=== PATIENT | male | born 1990 ===

== ENCOUNTER 2017-02-20 22:10 | Observation (INO) | payer SELFPAY ==
[2017-02-20 22:18] VITALS: BMI 28.3
--- NOTE | 2017-02-20 23:27 | ED PDOC ---
Arrival/HPI - General Chief Complaint: Chest Pain Time Seen by Provider: 02/20/17 22:33 Historian: Patient - History of Present Illness Narrative History of Present Illness (Text): 02/20/17 23:27 Eleazar Mccormack is a 26 year old male, whose past medical history includes tobacco abuse, who presents to the Emergency department complaining of chest pain. Patient states he was sitting down at home watching TV when he began experiencing mid-sternal chest pain radiating down his left arm. Patient notes associated shortness of breath and palpitations. Patient denies any fever , nausea, vomiting, diarrhea, urinary symptoms, back pain, neck pain, headache, dizziness, or any other complaints. Time/Duration: 4-6 hours (19:00) Symptom Course: Unchanged Quality: Tightness Activities at Onset: Rest, Light Context: Sitting, Home Past Medical History - Provider Review Nursing Documentation Reviewed: Yes - Psychiatric Hx Substance Use: No - Surgical History Hx Orthopedic Surgery: Yes (left foot) Family/Social History - Physician Review Nursing Documentation Reviewed: Yes Family/Social History: No Known Family HX Smoking Status: Light Smoker < 10 Cigarettes Daily Hx Alcohol Use: Yes Frequency of alcohol use: Socially Hx Substance Use: No Allergies/Home Meds Allergies/Adverse Reactions: Allergies No Known Allergies Allergy (Verified 02/20/17 22:18) Home Medications: Home Meds Medication Instructions Recorded Confirmed No Known Home Med 02/21/17 02/21/17 Review of Systems - Physician Review All systems were reviewed & negative as marked: Yes - Review of Systems Constitutional: Normal. absent: Fevers Eyes: Normal ENT: Normal Respiratory: SOB Cardiovascular: Chest Pain, Palpitations Gastrointestinal: Normal. absent: Abdominal Pain, Diarrhea, Nausea, Vomiting Genitourinary Male: Normal. absent: Dysuria, Frequency, Hematuria, Urinary Output Changes Musculoskeletal: Normal. absent: Back Pain, Neck Pain Skin: Normal. absent: Rash Neurological: Normal Endocrine: Normal Hemo/Lymphatic: Normal Psychiatric: Normal Physical Exam Vital Signs Reviewed: Yes Vital Signs Temp Pulse Resp BP Pulse Ox 02/21/17 01:15 62 16 128/78 97 02/20/17 23:15 64 20 133/78 98 02/20/17 22:45 98.3 F 70 16 147/83 98 02/20/17 22:21 97.7 F 82 20 163/100 H 98 Temperature: Afebrile Blood Pressure: Hypertensive Pulse: Regular Respiratory Rate: Normal Appearance: Positive for: Well-Appearing, Non-Toxic, Comfortable Pain Distress: None Mental Status: Positive for: Alert and Oriented X 3 - Systems Exam Head: Present: Atraumatic, Normocephalic Pupils: Present: PERRL Extroacular Muscles: Present: EOMI Conjunctiva: Present: Normal Mouth: Present: Moist Mucous Membranes Neck: Present: Normal Range of Motion Respiratory/Chest: Present: Clear to Auscultation, Good Air Exchange. No: Respiratory Distress, Accessory Muscle Use Cardiovascular: Present: Regular Rate and Rhythm, Normal S1, S2. No: Murmurs Abdomen: Present: Normal Bowel Sounds. No: Tenderness, Distention, Peritoneal Signs Back: Present: Normal Inspection Upper Extremity: Present: Normal Inspection. No: Cyanosis, Edema Lower Extremity: Present: Normal Inspection. No: Edema Neurological: Present: GCS=15, CN II-XII Intact, Speech Normal Skin: Present: Warm, Dry, Normal Color. No: Rashes Psychiatric: Present: Alert, Oriented x 3, Normal Insight, Normal Concentration Medical Decision Making ED Course and Treatment: 02/20/17 23:27 Impression: 26 year old male complaining of chest pain radiating to left arm, shortness of breath, and palpitations at 19:00 tonight. Plan: -- EKG -- Chest X-ray -- Labs, cardiac enzymes -- Reassess and disposition Progress Notes: Reviewed EKG, NSR at 75 bpm. Incomplete RBBB. Non-specific ST/T wave changes 02/21/17 01:28 Reviewed radiology, Chest X-ray shows no active disease. 02/21/17 02:[address] Monae, who is aware and agrees with plan. Accepts pt in to hospitalist service. Pt will go to remote telemetry observation for chest pain. Pt is no acute distress. Discussed results and hospital observation, who is aware and verbalizes understanding. - Lab Interpretations Lab Results: 02/21/17 01:15 02/21/17 01:15 Lab Results 02/21/17 01:15: WBC 5.4, RBC 4.96, Hgb 14.9, Hct 41.3 L, MCV 83.3, MCH 30.0, MCHC 36.1, RDW 12.8, Plt Count 171, MPV 13.1 H, PT 11.4, INR 1.06, APTT 28.6, Sodium 139, Potassium 3.9, Chloride 101, Carbon Dioxide 25, Anion Gap 17, BUN 15 , Creatinine 0.7, Est GFR ( Amer) > 60, Est GFR (Non-Af Amer) > 60, Random Glucose 112 H, Calcium 9.7, Total Bilirubin 1.0, AST 73 H, ALT 190 H, Alkaline Phosphatase 91, Lactate Dehydrogenase 713 H, Total Creatine Kinase 600 H, CK-MB (CK-2) 6.1 H, CK-MB (CK-2) % 1.0 L, Troponin I < 0.01, Total Protein 8.3, Albumin 4.6, Globulin 3.6, Albumin/Globulin Ratio 1.3 I have reviewed the lab results: Yes - RAD Interpretation Radiology Orders: 02/21/17 00:53 CHEST PORTABLE [RAD] Stat - EKG Interpretation Interpreted by ED Physician: Yes Type: 12 lead EKG - Medication Orders Current Medication Orders: Discontinued Medications Aspirin (Aspirin) 325 mg PO ONCE STA Stop: 02/21/17 02:26 - Scribe Statement The provider has reviewed the documentation as recorded by the Hilaria Lobo Provider Attestation: All medical record entries made by the Delroyibvladimir were at my direction and personally dictated by me. I have reviewed the chart and agree that the record accurately reflects my personal performance of the history, physical exam, medical decision making, and the department course for this patient. I have also personally directed, reviewed, and agree with the discharge instructions and disposition. Disposition/Present on Arrival - Present on Arrival Any Indicators Present on Arrival: No History of DVT/PE: No History of Uncontrolled Diabetes: No Urinary Catheter: No History of Decub. Ulcer: No History Surgical Site Infection Following: None - Disposition Have Diagnosis and Disposition been Completed?: Yes Diagnosis: Chest pain Disposition: HOSPITALIZED Disposition Time: 02:34 Patient Plan: Observation Patient Problems: Current Active Problems Problem Status Diagnosed Chest pain Acute Condition: STABLE Discharge Instructions (ExitCare): Chest Pain (ED)
[2017-02-21 01:43] LABS: ALB/GLOB RATIO 1.3 (1.1-1.8); ALKALINE PHOSPHATASE 91 U/L (38-133); ALT/SGPT 190 U/L (7-56); AST/SGOT 73 U/L (15-59); BLOOD UREA NITROGEN 15 mg/dL (7-21); CALCIUM 9.7 mg/dL (8.4-10.5); CARBON DIOXIDE 25 mmol/L (21-33); CHLORIDE 101 mmol/L (98-107); GFR AFRICAN-AMERICAN > 60; GLUCOSE,RANDOM 112 mg/dL (70-110); POTASSIUM 3.9 mmol/L (3.6-5.0); SODIUM 139 mmol/L (132-148); TOTAL PROTEIN 8.3 g/dL (5.8-8.3)
[2017-02-21 01:44] LABS: HEMATOCRIT 41.3 % (42.0-52.0); MEAN CELL VOLUME 83.3 fL (80.0-105.0); MEAN CORPUSCULAR HGB CONC 36.1 g/dl (31.0-37.0); MEAN PLATELET VOLUME 13.1 fl (7.0-11.0); RED CELL DISTRIBUTION WIDTH 12.8 % (11.5-14.5); WHITE BLOOD COUNT 5.4 10^3/ul (4.5-11.0)
[2017-02-21 01:47] LABS: INR 1.06 (0.93-1.08); PARTIAL THROMBOPLASTIN TIME 28.6 Seconds (23.7-30.8)
[2017-02-21 01:57] LABS: TROPONIN I < 0.01 ng/mL
--- NOTE | 2017-02-21 05:17 | CP.PCM.HP ---
<Parker Hayes - Last Filed: 02/21/17 05:34> History of Present Illness - History of Present Illness History of Present Illness: cc: Chest pain HPI: Patient is a 26yo male with no significant past medical history that presents c/o chest pain for the past several hours. Patient states that the pain started in the morning and described it as intermittent, pressure-like in nature and radiating to the left shoulder. Patient reported that he has never experienced anything like this in the past and denies illicit drug use. He states that he took tylenol and that provided moderate relief however the pain returned and he decided to come in for evaluation. He states that his chest pain is associated with palpitations as well. Denies shortness of breath, abdominal pain, nausea, vomiting, diaphoresis, fever, chills, cough. 12 point ROS as per HPI above otherwise negative PMHx: none PSHx: hernia repair (4yrs ago); left ankle surgery (8yrs ago) Family Hx: Mother: DM2; Father: DM2 Allergies: NKDA Social Hx: Smokes 1-2 cig/day for last 1 yr; Reports social alcohol use; denies illicit drug use Present on Admission - Present on Admission Any Indicators Present on Admission: No Past Patient History - Past Social History Smoking Status: Light Smoker < 10 Cigarettes Daily - PSYCHIATRIC Hx Substance Use: No - SURGICAL HISTORY Hx Orthopedic Surgery: Yes (left foot) Meds Home Medications: Home Medication List Medication Instructions Recorded Confirmed Type Naproxen [Anaprox] 275 mg PO BID PRN #20 tab 02/21/17 Rx Pravastatin Sodium [Pravachol] 20 mg PO DIN #30 tab 02/21/17 Rx Allergies/Adverse Reactions: Allergies Allergy/AdvReac Type Severity Reaction Status Date / Time No Known Allergies Allergy Verified 02/20/17 22:18 Physical Exam - Constitutional Appears: Well, Non-toxic, No Acute Distress - Head Exam Head Exam: ATRAUMATIC, NORMAL INSPECTION, NORMOCEPHALIC - Eye Exam Eye Exam: EOMI, PERRL. absent: Conjunctival injection, Scleral icterus - ENT Exam ENT Exam: Mucous Membranes Moist - Neck Exam Neck exam: Positive for: Normal Inspection. Negative for: Lymphadenopathy, Tenderness, Thyromegaly - Respiratory Exam Respiratory Exam: Clear to Auscultation Bilateral. absent: Rales, Rhonchi, Wheezes - Cardiovascular Exam Cardiovascular Exam: RRR, +S1, +S2. absent: Diastolic murmur, Gallop, JVD, Rubs , Systolic Murmur - GI/Abdominal Exam GI & Abdominal Exam: Normal Bowel Sounds, Soft. absent: Distended, Firm, Guarding, Rebound, Tenderness - Extremities Exam Extremities exam: Positive for: normal inspection, pedal pulses present. Negative for: calf tenderness, pedal edema, tenderness - Neurological Exam Neurological exam: Alert, CN II-XII Intact, Normal Gait, Oriented x3 - Psychiatric Exam Psychiatric exam: Normal Affect, Normal Mood - Skin Skin Exam: Dry, Intact, Normal Color, Warm Results - Vital Signs Recent Vital Signs: Last Vital Signs Temp 98.3 F 02/20/17 22:45 Pulse 65 02/21/17 03:15 Resp 16 02/21/17 03:15 BP 126/85 02/21/17 03:15 Pulse Ox 97 02/21/17 03:15 - Labs Result Diagrams: 02/21/17 01:15 02/21/17 01:15 Assessment & Plan - Assessment and Plan (Free Text) Assessment: 26yo male with no significant past medical history presents c/o intermittent chest pain associated with palpitations for the past several hours Plan: 1. Chest pain r/o acs -EKG revealed normal sinus rhythm at 78bpm with no acute ST-T wave changes -Troponin negative x1, will trend -CXR revealed no active disease -TSH/A1C/Lipid panel pending -Cardiology consulted - Dr. Stern 2. Transaminitis/Elevated CPK -Continue normal saline at 200/hr -Will recheck CPK -Drug tox pending 3. GI/DVT Prophylaxis -Protonix/Lovenox Patient seen and case discussed with attending, Dr. Monae - Date & Time Date: 02/21/17 Time: 05:18 <Nathanael Monae - Last Filed: 02/21/17 19:46> Results - Vital Signs Recent Vital Signs: Last Vital Signs Temp 97.5 F L 02/21/17 06:00 Pulse 71 02/21/17 10:00 Resp 20 02/21/17 06:00 BP 117/77 02/21/17 06:00 Pulse Ox 98 02/21/17 06:00 - Labs Result Diagrams: 02/21/17 01:15 02/21/17 01:15 Labs: Laboratory Results - last 24 hr 02/21/17 02/21/17 02/21/17 05:30 07:00 16:34 Hemoglobin A1c 5.7 Lactate Dehydrogenase 616 582 Total Creatine Kinase 553 H 447 H CK-MB (CK-2) 4.9 H 3.4 CK-MB (CK-2) % Cancelled Cancelled Troponin I < 0.01 < 0.01 Triglycerides 208 H Cholesterol 257 H LDL Cholesterol Direct 178 H HDL Cholesterol 44 Lipase 40 TSH 3rd Generation 3.33 Urine Color Yellow Urine Appearance Clear Urine pH 6.0 Ur Specific [place] 1.025 Urine Protein Negative Urine Glucose (UA) Negative Urine Ketones Negative Urine Blood Negative Urine Nitrate Negative Urine Bilirubin Negative Urine Urobilinogen 0.2 Ur Leukocyte Esterase Negative Urine Opiates Screen Negative Urine Methadone Screen Negative Ur Barbiturates Screen Negative Ur Phencyclidine Scrn Negative Ur Amphetamines Screen Negative U Benzodiazepines Scrn Negative U Oth Cocaine Metabols Negative U Cannabinoids Screen Negative Attending/Attestation - Attestation I have personally seen and examined this patient.: Yes I have fully participated in the care of the patient.: Yes I have reviewed all pertinent clinical information: Yes Notes (Text): 02/21/17 19:39 This patient was seen by me when he was in CODE room in the ER. Agree with history , physical examination, assessment and plan. This 26 year old male comes in with complaints of palpitation, chest pain, dizziness, has history of left ankle ORIF,right inguinal herniorrhaphy, smoking, family history of DM(MGM[employer]PG[employer]),lives in [place] in an apartment, is with one child.
[2017-02-21] MEDS: Sodium Chloride 0.9% 1,000 ML IV SCH ×2 (05:29→10:36)
[2017-02-21 05:38] LABS: URINE BILIRUBIN NEGATIVE (NEGATIVE); URINE BLOOD NEGATIVE (NEGATIVE); URINE GLUCOSE (UA) NEGATIVE (NEGATIVE); URINE KETONE NEGATIVE (NEGATIVE); URINE LEUKOCYTE ESTERASE NEGATIVE Leu/uL (NEGATIVE); URINE PROTEIN NEGATIVE mg/dL (<30 mg/dL); URINE UROBILINOGEN 0.2 E.U./dL (<1 E.U./dL)
[2017-02-21 05:39] LABS: URINE APPEARANCE CLEAR (CLEAR); URINE COLOR YELLOW (YELLOW)
[2017-02-21 05:51] LABS: CHOLESTEROL 257 mg/dL (130-200); LIPASE 40 U/L (23-300)
--- NOTE | 2017-02-21 07:17 | RAD ---
HISTORY: dizzy COMPARISON: No prior. FINDINGS: LUNGS: No active pulmonary disease. PLEURA: No significant pleural effusion identified, no pneumothorax apparent. CARDIOVASCULAR: Possible mild cardiomegaly -right heart border OSSEOUS STRUCTURES: No significant abnormalities. VISUALIZED UPPER ABDOMEN: Normal. OTHER FINDINGS: None. IMPRESSION: No active pulmonary disease. Possible prominent right heart border (versus projectional effects).
[2017-02-21 07:57] VITALS: BP 117/77; RESP 20; TEMP 97.5
[2017-02-21] MEDS ORDERED: Nitroglycerin 0.6 mg SL Tab SL PRN (08:21)
[2017-02-21 08:37] LABS: TROPONIN I < 0.01 ng/mL
[2017-02-21 08:44] VITALS: O2SAT 98
[2017-02-21 09:09] VITALS: PULSE 71
[2017-02-21] MEDS ORDERED: Enoxaparin 40 mg Syringe SC SCH (10:00)
[2017-02-21] MEDS ORDERED: Enoxaparin 30 mg Syringe SC SCH (10:00)
[2017-02-21] MEDS ORDERED: Sodium Chloride 0.9% 1,000 ML IV SCH (11:33)
--- NOTE | 2017-02-21 16:17 | CP.PCM.DIS ---
<Romel Monroe - Last Filed: 02/21/17 18:56> Provider - Provider Date of Admission: 02/21/17 02:31 Attending physician: Homer Rosario MD Primary care physician: Dr. Hodges Consults: Cardio: Dr. Stern Time Spent in preparation of Discharge (in minutes): 40 Diagnosis - Discharge Diagnosis (1) Chest pain Status: Resolved (2) Hyperlipidemia Status: Chronic (3) Tobacco abuse Status: Chronic Hospital Course - Lab Results Lab Results: Most Recent Lab Values WBC 5.4 10^3/ul (4.5-11.0) 02/21/17 01:15 RBC 4.96 10^6/uL (3.5-6.1) 02/21/17 01:15 Hgb 14.9 gm/dL (14.0-18.0) 02/21/17 01:15 Hct 41.3 % (42.0-52.0) L 02/21/17 01:15 MCV 83.3 fL (80.0-105.0) 02/21/17 01:15 MCH 30.0 pg (25.0-35.0) 02/21/17 01:15 MCHC 36.1 g/dl (31.0-37.0) 02/21/17 01:15 RDW 12.8 % (11.5-14.5) 02/21/17 01:15 Plt Count 171 10^3/uL (120.0-450.0) 02/21/17 01:15 MPV 13.1 fl (7.0-11.0) H 02/21/17 01:15 PT 11.4 Seconds (9.9-11.8) 02/21/17 01:15 INR 1.06 (0.93-1.08) 02/21/17 01:15 APTT 28.6 Seconds (23.7-30.8) 02/21/17 01:15 Sodium 139 mmol/L (132-148) 02/21/17 01:15 Potassium 3.9 mmol/L (3.6-5.0) 02/21/17 01:15 Chloride 101 mmol/L (98-107) 02/21/17 01:15 Carbon Dioxide 25 mmol/L (21-33) 02/21/17 01:15 Anion Gap 17 (10-20) 02/21/17 01:15 BUN 15 mg/dL (7-21) 02/21/17 01:15 Creatinine 0.7 mg/dL (0.5-1.4) 02/21/17 01:15 Est GFR ( Amer) > 60 02/21/17 01:15 Est GFR (Non-Af Amer) > 60 02/21/17 01:15 Random Glucose 112 mg/dL (70-110) H 02/21/17 01:15 Hemoglobin A1c 5.7 % (4.2-6.5) 02/21/17 05:30 Calcium 9.7 mg/dL (8.4-10.5) 02/21/17 01:15 Total Bilirubin 1.0 mg/dL (0.2-1.3) 02/21/17 01:15 AST 73 U/L (15-59) H 02/21/17 01:15 ALT 190 U/L (7-56) H 02/21/17 01:15 Alkaline Phosphatase 91 U/L (38-133) 02/21/17 01:15 Lactate Dehydrogenase 616 U/L (333-699) 02/21/17 07:00 Total Creatine Kinase 553 U/L (35-230) H 02/21/17 07:00 CK-MB (CK-2) 4.9 ng/mL (0.0-3.6) H 02/21/17 07:00 CK-MB (CK-2) % 1.0 % (2.5-3.0) L 02/21/17 01:15 Troponin I < 0.01 ng/mL 02/21/17 07:00 Total Protein 8.3 g/dL (5.8-8.3) 02/21/17 01:15 Albumin 4.6 g/dL (3.0-4.8) 02/21/17 01:15 Globulin 3.6 gm/dL 02/21/17 01:15 Albumin/Globulin Ratio 1.3 (1.1-1.8) 02/21/17 01:15 Triglycerides 208 mg/dL (35-160) H 02/21/17 05:30 Cholesterol 257 mg/dL (130-200) H 02/21/17 05:30 LDL Cholesterol Direct 178 mg/dL (0-129) H 04/05/17 05:30 HDL Cholesterol 44 mg/dL (29-60) 02/21/17 05:30 Lipase 40 U/L (23-300) 02/21/17 05:30 TSH 3rd Generation 3.33 mIU/mL (0.46-4.68) 02/21/17 05:30 Urine Color Yellow (YELLOW) 02/21/17 05:30 Urine Appearance Clear (CLEAR) 02/21/17 05:30 Urine pH 6.0 (4.7-8.0) 02/21/17 05:30 Ur Specific [place] 1.025 (1.005-1.035) 02/21/17 05:30 Urine Protein Negative mg/dL (<30 mg/dL) 02/21/17 05:30 Urine Glucose (UA) Negative mg/dL (NEGATIVE) 02/21/17 05:30 Urine Ketones Negative mg/dL (NEGATIVE) 02/21/17 05:30 Urine Blood Negative (NEGATIVE) 02/21/17 05:30 Urine Nitrate Negative (NEGATIVE) 02/21/17 05:30 Urine Bilirubin Negative (NEGATIVE) 02/21/17 05:30 Urine Urobilinogen 0.2 E.U./dL (<1 E.U./dL) 02/21/17 05:30 Ur Leukocyte Esterase Negative Sonam/uL (NEGATIVE) 02/21/17 05:30 Urine Opiates Screen Negative (NEGATIVE) 02/21/17 05:30 Urine Methadone Screen Negative (NEGATIVE) 02/21/17 05:30 Ur Barbiturates Screen Negative (NEGATIVE) 02/21/17 05:30 Ur Phencyclidine Scrn Negative (NEGATIVE) 02/21/17 05:30 Ur Amphetamines Screen Negative (NEGATIVE) 02/21/17 05:30 U Benzodiazepines Scrn Negative (NEGATIVE) 02/21/17 05:30 U Oth Cocaine Metabols Negative (NEGATIVE) 02/21/17 05:30 U Cannabinoids Screen Negative (NEGATIVE) 02/21/17 05:30 Alcohol, Quantitative < 10 mg/dL (0-10) 02/21/17 01:15 - Hospital Course Hospital Course: 26 year old male with no significant past medical history that presents with chest pain for the past several hours. Patient states that the pain started in the morning and described it as intermittent, pressure-like in nature and radiating to the left shoulder. Patient reported that he has never experienced anything like this in the past and denies illicit drug use. He states that he took tylenol and that provided moderate relief however the pain returned and he decided to come in for evaluation. He states that his chest pain is associated with palpitations as well. The pain is worse when patient takes a deep breath. Patient is a current smoker. Denies shortness of breath, abdominal pain, nausea, vomiting, diaphoresis, fever, chills, cough. In the ED, CXR showed no active disease. EKG showed NSR, incomplete right bundle branch block (see full report). Upon admission, cardiology consult was requested. In the morning patient complains of minor chest discomfort, nitroglycerin was given and symptoms resolved. Patient was found to have elevated triglycerides, cholesterol, and LDL. TSH was normal. Troponins were normal x3. Cardiology recommended naproxen, outpatient echocardiogram and stress test. Health diet and lifestyle modifications endorsed to the patient. Smoking and alcohol cessation was strongly advised. The discharge plan and follow ups were extensively discussed with the patient who verbalized with complete understanding. At this time, after discussion of all issues, the patient was deemed medically fit for discharge. - Date & Time of H&P Date of H&P: 02/21/17 Time of H&P: 05:13 Discharge Exam - Head Exam Head Exam: ATRAUMATIC, NORMAL INSPECTION, NORMOCEPHALIC - Eye Exam Eye Exam: Normal appearance Pupil Exam: PERRL - ENT Exam ENT Exam: Mucous Membranes Moist - Neck Exam Neck exam: Normal Inspection - Respiratory Exam Respiratory Exam: Clear to PA & Lateral, NORMAL BREATHING PATTERN, UNREMARKABLE. absent: Rhonchi, Wheezes, Respiratory Distress - Cardiovascular Exam Cardiovascular Exam: REGULAR RHYTHM, RRR, +S1, +S2 - GI/Abdominal Exam GI & Abdominal Exam: Normal Bowel Sounds, Soft, Unremarkable. absent: Rigid - Extremities Exam Extremities exam: normal capillary refill, normal inspection, pedal pulses present - Back Exam Back exam: NORMAL INSPECTION. absent: CVA tenderness (L), CVA tenderness (R) - Neurological Exam Neurological exam: Alert, Oriented x3 - Psychiatric Exam Psychiatric exam: Normal Affect, Normal Mood - Skin Skin Exam: Dry, Intact, Normal Color, Warm Discharge Plan - Discharge Medications Prescriptions: Naproxen [Anaprox] 275 mg PO BID PRN #20 tab PRN Reason: Pain, Mild (1-3) Pravastatin Sodium [Pravachol] 20 mg PO DIN #30 tab - Follow Up Plan Condition: STABLE Disposition: HOME/ ROUTINE Instructions: Angina (DC) Additional Instructions: If you experience any Chest or arm pain ,nausea or vomiting. Call your primary physician and go to nearest E.R. Patient was instructed to follow up with PMD Dr. Hodges Patient will need to schedule outpatient echocardiogram and stress test Patient will take medications as prescribed Health diet and lifestyle modifications were strongly advised. Weight loss, low salt, low fat diet and exercise daily for at least 30mins Go to the nearest ED if symptoms worsen or return Referrals: Anitha Hodges DO [[facility]] - <Fabi LY,[facility] - Last Filed: 02/22/17 14:00> Provider - Provider Date of Admission: 02/21/17 02:31 Attending physician: Homer Rosario MD Hospital Course - Lab Results Lab Results: Most Recent Lab Values WBC 5.4 10^3/ul (4.5-11.0) 02/21/17 01:15 RBC 4.96 10^6/uL (3.5-6.1) 02/21/17 01:15 Hgb 14.9 gm/dL (14.0-18.0) 02/21/17 01:15 Hct 41.3 % (42.0-52.0) L 02/21/17 01:15 MCV 83.3 fL (80.0-105.0) 02/21/17 01:15 MCH 30.0 pg (25.0-35.0) 02/21/17 01:15 MCHC 36.1 g/dl (31.0-37.0) 02/21/17 01:15 RDW 12.8 % (11.5-14.5) 02/21/17 01:15 Plt Count 171 10^3/uL (120.0-450.0) 02/21/17 01:15 MPV 13.1 fl (7.0-11.0) H 02/21/17 01:15 PT 11.4 Seconds (9.9-11.8) 02/21/17 01:15 INR 1.06 (0.93-1.08) 02/21/17 01:15 APTT 28.6 Seconds (23.7-30.8) 02/21/17 01:15 Sodium 139 mmol/L (132-148) 02/21/17 01:15 Potassium 3.9 mmol/L (3.6-5.0) 02/21/17 01:15 Chloride 101 mmol/L (98-107) 02/21/17 01:15 Carbon Dioxide 25 mmol/L (21-33) 02/21/17 01:15 Anion Gap 17 (10-20) 02/21/17 01:15 BUN 15 mg/dL (7-21) 02/21/17 01:15 Creatinine 0.7 mg/dL (0.5-1.4) 02/21/17 01:15 Est GFR ( Amer) > 60 02/21/17 01:15 Est GFR (Non-Af Amer) > 60 02/21/17 01:15 Random Glucose 112 mg/dL (70-110) H 02/21/17 01:15 Hemoglobin A1c 5.7 % (4.2-6.5) 02/21/17 05:30 Calcium 9.7 mg/dL (8.4-10.5) 02/21/17 01:15 Total Bilirubin 1.0 mg/dL (0.2-1.3) 02/21/17 01:15 AST 73 U/L (15-59) H 02/21/17 01:15 ALT 190 U/L (7-56) H 02/21/17 01:15 Alkaline Phosphatase 91 U/L (38-133) 02/21/17 01:15 Lactate Dehydrogenase 582 U/L (333-699) 02/21/17 16:34 Total Creatine Kinase 447 U/L (35-230) H 02/21/17 16:34 CK-MB (CK-2) 3.4 ng/mL (0.0-3.6) 02/21/17 16:34 CK-MB (CK-2) % 1.0 % (2.5-3.0) L 02/21/17 01:15 Troponin I < 0.01 ng/mL 02/21/17 16:34 Total Protein 8.3 g/dL (5.8-8.3) 02/21/17 01:15 Albumin 4.6 g/dL (3.0-4.8) 02/21/17 01:15 Globulin 3.6 gm/dL 02/21/17 01:15 Albumin/Globulin Ratio 1.3 (1.1-1.8) 02/21/17 01:15 Triglycerides 208 mg/dL (35-160) H 02/21/17 05:30 Cholesterol 257 mg/dL (130-200) H 02/21/17 05:30 LDL Cholesterol Direct 178 mg/dL (0-129) H 02/21/17 05:30 HDL Cholesterol 44 mg/dL (29-60) 02/21/17 05:30 Lipase 40 U/L (23-300) 02/21/17 05:30 TSH 3rd Generation 3.33 mIU/mL (0.46-4.68) 02/21/17 05:30 Urine Color Yellow (YELLOW) 02/21/17 05:30 Urine Appearance Clear (CLEAR) 02/21/17 05:30 Urine pH 6.0 (4.7-8.0) 02/21/17 05:30 Ur Specific [place] 1.025 (1.005-1.035) 02/21/17 05:30 Urine Protein Negative mg/dL (<30 mg/dL) 02/21/17 05:30 Urine Glucose (UA) Negative mg/dL (NEGATIVE) 02/21/17 05:30 Urine Ketones Negative mg/dL (NEGATIVE) 02/21/17 05:30 Urine Blood Negative (NEGATIVE) 02/21/17 05:30 Urine Nitrate Negative (NEGATIVE) 02/21/17 05:30 Urine Bilirubin Negative (NEGATIVE) 02/21/17 05:30 Urine Urobilinogen 0.2 E.U./dL (<1 E.U./dL) 02/21/17 05:30 Ur Leukocyte Esterase Negative Sonam/uL (NEGATIVE) 02/21/17 05:30 Urine Opiates Screen Negative (NEGATIVE) 02/21/17 05:30 Urine Methadone Screen Negative (NEGATIVE) 02/21/17 05:30 Ur Barbiturates Screen Negative (NEGATIVE) 02/21/17 05:30 Ur Phencyclidine Scrn Negative (NEGATIVE) 02/21/17 05:30 Ur Amphetamines Screen Negative (NEGATIVE) 02/21/17 05:30 U Benzodiazepines Scrn Negative (NEGATIVE) 02/21/17 05:30 U Oth Cocaine Metabols Negative (NEGATIVE) 02/21/17 05:30 U Cannabinoids Screen Negative (NEGATIVE) 02/21/17 05:30 Alcohol, Quantitative < 10 mg/dL (0-10) 02/21/17 01:15 Hepatitis A IgM Ab Negative (NEGATIVE) 02/21/17 16:34 Hep Bs Antigen Negative (NEGATIVE) 02/21/17 16:34 Hep B Core IgM Ab Negative (NEGATIVE) 02/21/17 16:34 Hepatitis C Antibody Negative (NEGATIVE) 02/21/17 16:34 Attending/Attestation - Attestation I have personally seen and examined this patient.: Yes I have fully participated in the care of the patient.: Yes I have reviewed all pertinent clinical information, including history, physical exam and plan: Yes Notes (Text): Patient was seen and examined with medical professionals .Agreed with resident assessment and plan. 26 yrs old male with atypical chest pain, has chest wall tenderness,EKG is negative for ischemic changes, serial troponins are normal, was evaluated by cardiology and out patient stress test has been recommended.Patient will be discharged home and will follow up with [facility]. Management plan was discussed in detail with patient Education was provided.
--- NOTE | 2017-02-21 16:45 | CARD ---
APPROVED REPORT EKG Measurement Heart [id number] <Conclusion> Normal sinus rhythm Incomplete right bundle branch block Nonspecific T wave abnormality Abnormal ECG
--- NOTE | 2017-02-21 16:50 | CARD ---
APPROVED REPORT EKG Measurement Heart [id number] <Conclusion> Normal sinus rhythm Incomplete right bundle branch block Nonspecific T wave abnormality Abnormal ECG
[2017-02-21 17:09] LABS: TROPONIN I < 0.01 ng/mL
[2017-02-21] MEDS ORDERED: Naproxen 275 mg Tab PO SCH (18:00)
--- NOTE | 2017-02-21 19:31 | PN ---
DATE: 02/21/2017 REASON FOR CONSULTATION: Chest pain. HISTORY OF PRESENT ILLNESS: A 26-year-old male admitted with a history that he had a sharp chest betty n over the chest which lasted 15 minutes without any diaphoresis, nausea, vomiting. The patient stat es that he goes to gym, exercises, during exercise he does not get any chest pain. The patient denie s any history of medical disease. PAST MEDICAL HISTORY: Positive for hernia repair surgery and also left ankle surgery. PERSONAL HISTORY: He smokes 1-2 cigarettes a day and drinks socially. ALLERGIES: Denies any allergies. FAMILY HISTORY: Mother and father have diabetes. MEDICATIONS AT HOME: The patient denies any medications. REVIEW OF SYSTEMS: All the systems were reviewed, positive mentioned in the history, others were neg ative. PHYSICAL EXAMINATION: VITAL SIGNS: Blood pressure 117/77, respirations 20, pulse 61, temperature 97.5. HEAD: Normocephalic. EYES: Pupils normal. Conjunctivae normal. NOSE AND THROAT: Normal. NECK: JVP low. Carotid equal. THORAX: The patient had tenderness on the area of pain. LUNGS: Clear. CARDIOVASCULAR: S1, S2. ABDOMEN: Soft, nontender, no organomegaly. EXTREMITIES: No clubbing, no cyanosis, no calf tenderness. No edema. LABORATORY DATA: WBC 5.4, hemoglobin 14.9, hematocrit 41.3, platelets 171. Sodium 139, potassium 3. 9, BUN 15, creatinine 0.7. AST 73, ALT 190. CPK 600. Troponin less than 0.01 x 3, negative. Repea t CPK 447, triglycerides 208, cholesterol 257, LDL 178. TSH 3.33. EKG showed regular sinus rhythm. Chest x-ray: No active pulmonary disease. DIAGNOSES: Chest pain musculoskeletal, high cholesterol, high triglyceride, abnormal liver function tests. PLAN: We will treat the chest pain, which is musculoskeletal with Naprosyn and suggested the patient to do regular stress test and echocardiogram as an outpatient. The patient was also told about high cholesterol and triglycerides. The patient already on Lipitor started during present admission. Th e patient should follow as outpatient as well for a followup on the cholesterol and liver function te sts as well as regular stress test and echo. Cuco Stern MD cc: [id number] TT: 02/21/2017 19:30:59 Confirmation # [id number] Dictation # [id number]
== END 2017-02-21 18:06 | disposition home or self-care (01) ==
LOC: ED 22:10 → ERH 02-21 02:31 → 3RSO 02-21 05:42
PROVIDERS: ADMIT Internal Medicine; ATTEND Internal Medicine
DX: R07.9 Chest pain, unspecified (principal); I45.10 Unspecified right bundle-branch block; E78.00 Pure hypercholesterolemia, unspecified; E78.1 Pure hyperglyceridemia; F17.210 Nicotine dependence, cigarettes, uncomplicated; E78.5 Hyperlipidemia, unspecified; Z79.899 Other long term (current) drug therapy; Z83.3 Family history of diabetes mellitus; R00.2 Palpitations; R74.0 Nonspecific elevation of levels of transaminase and lactic acid dehydrogenase [LDH]
CPT/HCPCS: 71010; 80053; 80061; 80074; 81003; 82550; 82553; 83036; 83615; 83690; 84443; 84484; 85027; 85610; 85730; 93005; C9113; G0378; G0480; J1650; J7040